=== PATIENT | female | born 1955 | race Caucasian/White ===

== ENCOUNTER → 2018-10-04 | Outpatient (CLI) | payer OTHER ==
--- NOTE | 2018-10-05 16:24 | RAD ---
DATE: October 04, 2018 EXAM: MAMMO ANGUS SCREENING BILATERAL HISTORY: Screening study. COMPARISON: 2013 and 2015 This study was interpreted with the benefit of Computerized Aided Detection (CAD). 2-D digital mammographic views of both breasts were performed in the CC and MLO projections. 3-D digital tomosynthesis images of both breasts were performed in the CC and MLO projections and reviewed on a computer workstation. FINDINGS: Breast Density: SCATTERED The breast parenchyma shows scattered fibroglandular densities. Breast parenchyma level B.. There are no dominant suspicious masses, suspicious microcalcifications or evidence of architectural distortion. Left breast nodularity is stable. IMPRESSION: No mammographic indicators for malignancy. BI-RADS CATEGORY: 2 BENIGN FINDING RECOMMENDED FOLLOW-UP: 12M 12 MONTH FOLLOW-UP PQRS compliance statement: Patient information was entered into a reminder system with a target due date October 05, 2019 for the next mammogram. Mammography is a sensitive method for finding small breast cancers, but it does not detect them all and is not a substitute for careful clinical examination. A negative mammogram does not negate a clinically suspicious finding and should not result in delay in biopsying a clinically suspicious abnormality. "Our facility is accredited by the [employer] Mammography [employer]." The patient's breast density may affect the ability of mammography to detect breast cancer. There are 4 categories of breast density, A, B, C and D. Breast density A means that most of the breast tissue is replaced with adipose tissue and therefore is not dense. Breast density B means that the breast tissue is mildly dense and scattered. Breast density C means that the breast tissue is heterogeneously dense. Breast density D means that the breast tissue is very dense. Breast densities especially C and D may decrease the sensitivity of mammography to detect breast cancer. Therefore, the patient may benefit from 3-D breast mammography (3D breast tomography) as a part of their screening mammogram. Insurance may or may not pay for this additional imaging. The patient's breast density based on today's mammogram is category B.
== END | disposition home or self-care (01) ==
LOC: MAMMO 15:23
PROVIDERS: ATTEND Physician Assistant Medical
DX: Z12.31 Encounter for screening mammogram for malignant neoplasm of breast (principal)
CPT/HCPCS: 77063; 77067

== ENCOUNTER → 2019-10-05 | Outpatient (CLI) | payer OTHER ==
--- NOTE | 2019-10-06 15:32 | RAD ---
DATE: 10/05/2019 EXAM: MAMMO ANGUS SCREENING BILATERAL HISTORY: Routine screening COMPARISON: 10/16/2013, 10/24/2014, 10/28/2015, 10/04/2018 This study was interpreted with the benefit of Computerized Aided Detection (CAD). Breast Density: SCATTERED The breast parenchyma shows scattered fibroglandular densities. Breast parenchyma level B. FINDINGS: Right upper breast asymmetry is present on the MLO projection this is approximately 5 cm from nipple. It may represent summation of breast parenchyma. No suspicious masses or definite distortion. Benign calcification is present. IMPRESSION: New asymmetry suspected BI-RADS CATEGORY: 0 INCOMPLETE: NEEDS ADDITIONAL IMAGING EVALUATION AND/OR PRIOR MAMMOGRAMS FOR COMPARISON. RECOMMENDED FOLLOW-UP: ADD ADDITIONAL IMAGING. Spot compression of the right upper breast recommended. Ultrasound may be needed. PQRS compliance statement: Patient information was entered into a reminder system with a target due date for the next mammogram. Mammography is a sensitive method for finding small breast cancers, but it does not detect them all and is not a substitute for careful clinical examination. A negative mammogram does not negate a clinically suspicious finding and should not result in delay in biopsying a clinically suspicious abnormality. "Our facility is accredited by the [employer] Mammography [employer]."
== END ==
LOC: MAMMO 09:57
PROVIDERS: ATTEND Physician Assistant Medical
DX: Z12.31 Encounter for screening mammogram for malignant neoplasm of breast (principal); N64.89 Other specified disorders of breast
CPT/HCPCS: 77063; 77067

== ENCOUNTER → 2019-10-12 | Outpatient (CLI) | payer OTHER ==
--- NOTE | 2019-10-12 16:45 | RAD ---
DATE: 10/12/2019. EXAM: DIGITAL DIAGNOSTIC RT, BREAST RIGHT. HISTORY: Asymmetry on mammographic screening. Additional imaging is requested. COMPARISON: 10/05/2019. This study was interpreted with the benefit of Computerized Aided Detection (CAD). FINDINGS: Breast Density: SCATTERED The breast parenchyma shows scattered fibroglandular densities. Breast parenchyma level B.. Spot compression of the region of concern superolaterally on the right reveals only parenchymal densities. There is no discrete mass. Scattered calcifications appear benign. There are benign coarse calcifications elsewhere. On today's sonography, there is no suspicious finding. Only dense parenchymal islands are seen. BI-RADS CATEGORY: 2 BENIGN FINDING(S). RECOMMENDED FOLLOW-UP: 12M 12 MONTH FOLLOW-UP. PQRS compliance statement: Patient information was entered into a reminder system with a target due date 10/05/2020 for the next mammogram. Mammography is a sensitive method for finding small breast cancers, but it does not detect them all and is not a substitute for careful clinical examination. A negative mammogram does not negate a clinically suspicious finding and should not result in delay in biopsying a clinically suspicious abnormality. "Our facility is accredited by the [employer] Mammography [employer]."
== END | disposition home or self-care (01) ==
LOC: MAMMO 13:22
PROVIDERS: ATTEND Physician Assistant
DX: N64.89 Other specified disorders of breast (principal)
CPT/HCPCS: 76641; 77065

== ENCOUNTER → 2021-03-06 | Outpatient (CLI) | payer OTHER ==
--- NOTE | 2021-03-06 08:49 | RAD ---
INDICATION: Reason: SMOKE INALATION / Spl. Instructions: / History: COMPARISON: April 2014 FINDINGS: 2 view of chest obtained. Cardiac silhouette is unremarkable. Degenerative changes of the spine with osteophyte formation. Mild interstitial prominence is again seen without a definite new region of consolidation. IMPRESSION: * Similar exam compared to prior without a new region of consolidation Electronically signed by: Peter Holloway MD (03/06/2021 8:47 AM) [id number]
== END ==
LOC: RAD 08:16
PROVIDERS: ATTEND Nurse Practitioner Family
DX: T59.814A Toxic effect of smoke, undetermined, initial encounter (principal); X02.1XXA Exposure to smoke in controlled fire in building or structure, initial encounter; Y92.89 Other specified places as the place of occurrence of the external cause
CPT/HCPCS: 71046